=== PATIENT | male | born 1970 | race Caucasian/White ===

== ENCOUNTER 2022-04-24 15:21 | Emergency (ER) | payer OTHER ==
[~2022-04-24] VITALS: Ht 172.7 cm; Wt 123.8 kg
[2022-04-24 16:09] LABS: BASOPHIL 0.4 % (0-2); EOSINOPHIL 0.7 % (0-5); HCT 44.8 % (42.0-52.0); HGB 15.4 g/dl (13.2-18.0); LYMPHOCYTE 27.6 % (15-48); MCH 31.2 pg (25.0-31.0); MCHC 34.4 g/dL (32.0-36.0); MCV 90.7 fL (78.0-100.0); MONOCYTE 7.7 % (0-12); MPV 10.9 fL (6.0-9.5); NEUTROPHIL 63.2 % (41-80); NRBC 0; PLT 249 K/uL (150-400); RBC 4.94 M/uL (4.70-6.00); WBC 11.4 K/uL (4.0-10.5)
[2022-04-24 16:17] LABS: ALBUMIN 3.8 g/dL (3.4-5.0); BILIRUBIN - TOTAL 0.5 mg/dL (0.2-1.0); BUN/CREAT RATIO (CALC) 15.9 RATIO; CREATININE 1.13 mg/dL (0.67-1.17); GLOBULIN (CALCULATION) 3.8 g/dL; MAGNESIUM 1.9 mg/dL (1.8-2.4); POTASSIUM 3.8 mmol/L (3.5-5.1); TOTAL PROTEIN 7.6 g/dL (6.4-8.2)
== END 2022-04-24 22:10 | disposition home or self-care (01) ==
LOC: FER 15:21
PROVIDERS: Emergency Medicine
DX: T67.5XXA Heat exhaustion, unspecified, initial encounter (principal); R77.8 Other specified abnormalities of plasma proteins; Z88.8 Allergy status to other drugs, medicaments and biological substances
CPT/HCPCS: 36415; 80053; 82550; 83735; 84484; 85025; 93005; J7030